=== PATIENT | female | born 1975 | race Caucasian/White ===

== ENCOUNTER → 2017-03-07 | Outpatient (CLI) | payer BC, OTHER ==
[~2017-03-07] MED LIST: BUPR150T3 PO; CIPR500T3 PO; CIPRODEX TOP; GASTROGRAFIN SOLUTION 30ML (Q9963) As Ordered ONE; PANT40TA2 PO; VITA50003 PO
== END ==
LOC: M RAD 16:39
PROVIDERS: ATTEND Physician Assistant Medical
DX: K62.89 Other specified diseases of anus and rectum (principal)
CPT/HCPCS: 72192; Q9963

== ENCOUNTER 2017-03-16 10:54 | Emergency (ER) | payer BC, OTHER ==
[~2017-03-16] VITALS: Ht 160 cm; Wt 79.4 kg
[2017-03-16] MEDS ORDERED: PANT40TA2 PO (11:17)
[2017-03-16] MEDS ORDERED: CIPRODEX TOP (11:17)
[2017-03-16] MEDS ORDERED: VITA1CAP40 PO (11:17)
[2017-03-16] MEDS ORDERED: BUPR150T3 PO (11:17)
[2017-03-16] MEDS ORDERED: CIPR500T3 PO (11:17)
--- NOTE | 2017-03-16 12:09 | REP ---
Clinical: Chest pain . Comparison: None. Technique: PA and lateral. Findings: The mediastinum and cardiac silhouette are normal. The lung hay are clear and without acute consolidation, effusion, or pneumothorax. The skeletal structures are intact and normal. Impression: 1. No acute cardiopulmonary process. Signed by Chung Aparicio MD 03/16/2017 12:00 P
[2017-03-16 12:27] LABS: ALBUMIN 3.7 GM/DL (3.2-5.2); ALBUMIN/GLOBULIN RATIO 0.97 (1.00-1.93); ALKALINE PHOSPHATASE 99 U/L (45-117); ALT/SGPT 18 U/L (12-78); ANION GAP 6 MEQ/L (8-16); AST/SGOT 15 U/L (15-37); BILIRUBIN,DIRECT < 0.1 MG/DL (0.0-0.2); BILIRUBIN,TOTAL 0.2 MG/DL (0.2-1.0); BLOOD UREA NITROGEN 11 MG/DL (7-18); CALCIUM LEVEL 8.8 MG/DL (8.5-10.1); CARBON DIOXIDE LEVEL 29 MEQ/L (21-32); CHLORIDE LEVEL 103 MEQ/L (98-107); CREATININE FOR GFR 0.88 MG/DL (0.55-1.02); GLOMERULAR FILTRATION RATE > 60.0 (>60); GLUCOSE, FASTING 77 MG/DL (70-105); POTASSIUM SERUM 3.6 MEQ/L (3.5-5.1); SODIUM LEVEL 138 MEQ/L (136-145); TOTAL PROTEIN 7.5 GM/DL (6.4-8.2)
[2017-03-16 12:36] LABS: BASO % 0.9 % (0.0-1.0); EOS % 0.8 % (0.0-3.0); LARGE UNSTAINED CELL # 0.1 K/mm3 (0.0-0.4); LARGE UNSTAINED CELL % 2.6 % (0.0-4.0); LYMPH # 1.4 K/mm3 (1.5-4.5); LYMPH % 27.9 % (24.0-44.0); MEAN CORPUSCULAR HEMOGLOBIN 27.4 pg (27.0-33.0); MEAN CORPUSCULAR VOLUME 85.8 fl (80.0-96.0); MONO # 0.4 K/mm3 (0.0-0.8); MONO % 6.9 % (0.0-5.0); NEUTROPHILS # 3.1 K/mm3 (1.8-7.7); NEUTROPHILS % 60.8 % (36.0-66.0); PLATELET COUNT, AUTOMATED 223 k/mm3 (150-450); RED CELL DISTRIBUTION WIDTH 13.7 % (11.5-14.5)
[2017-03-16 13:16] LABS: FREE T4 1.05 NG/DL (0.76-1.46)
[2017-03-16 13:17] VITALS: BP 135/80
--- NOTE | 2017-03-18 07:14 | ECGEPIP ---
Stationary ECG Study [facility] - ED Test Date: 2017-03-16 Pat Name: DAVID SINGH Department: Room: - Gender: F Offset Plate Maker: hermila : 1975 Requested By: Sana Polk Order Number: [id number] Reading MD: Sana Polk Measurements Intervals [place] Rate: 86 P: 32 VA: 153 QRS: 35 QRSD: 92 T: 28 QT: 367 QTc: 441 Interpretive Statements SINUS RHYTHM NONSPECIFIC T-WAVE ABNORMALITY INCREASED RATE 05/29/13 Electronically Signed On 03-18-2017 7:14:22 EDT by Sana Polk
== END 2017-03-16 13:31 | disposition home or self-care (01) ==
LOC: M ED 10:54
DX: R07.89 Other chest pain (principal); J06.9 Acute upper respiratory infection, unspecified; K21.9 Gastro-esophageal reflux disease without esophagitis; G43.909 Migraine, unspecified, not intractable, without status migrainosus; E66.9 Obesity, unspecified; E55.9 Vitamin D deficiency, unspecified; Z98.84 Bariatric surgery status; Z79.899 Other long term (current) drug therapy; Z79.2 Long term (current) use of antibiotics; Z88.6 Allergy status to analgesic agent

== ENCOUNTER → 2018-06-16 | Outpatient (CLI) | payer BC, OTHER | LOC: M EKG 15:54 | DX: R00.2 Palpitations (principal) | CPT/HCPCS: 93225 ==

== ENCOUNTER → 2019-08-30 | Outpatient (REF) | payer OTHER ==
[~2019-08-30] MED LIST changes: -GASTROGRAFIN SOLUTION 30ML (Q9963) As Ordered ONE; -PANT40TA2 PO; +PANT40TA3 PO; -VITA50003 PO; +VITA50005 PO
[2019-08-30 18:19] LABS: APPEARANCE, URINE CLEAR (CLEAR); BACTERIA, URINE AUTO NEGATIVE (NEGATIVE); BILIRUBIN, URINE AUTO NEGATIVE (NEGATIVE); BLOOD, URINE BLOOD NEGATIVE (NEGATIVE); COLOR, URINE STRAW (YELLOW); GLUCOSE, URINE (UA) AUTO NEGATIVE (NEGATIVE); KETONE, URINE AUTO NEGATIVE (NEGATIVE); LEUKOCYTE ESTERASE, URINE AUTO NEGATIVE (NEGATIVE); NITRITE, URINE AUTO NEGATIVE (NEGATIVE); PROTEIN, URINE AUTO NEGATIVE (NEGATIVE); RBC, URINE AUTO 1 /HPF (0-3); SPECIFIC GRAVITY URINE AUTO 1.014 (1.002-1.035); SQUAMOUS EPITHELIAL CELL UR AU 1 /HPF (0-6); UROBILINOGEN, URINE AUTO 0.2 mg/dL (0.0-2.0); WBC, URINE AUTO 1 /HPF (0-3)
== END ==
LOC: M SMT 17:02
PROVIDERS: ATTEND Nurse Practitioner Family
DX: R35.0 Frequency of micturition (principal)

== ENCOUNTER → 2021-11-25 | Outpatient (CLI) | payer BC, OTHER ==
[~2021-11-25] MED LIST changes: +BUPR150T12 PO; -BUPR150T3 PO; +CIPR7.5D5 TOP; -CIPRODEX TOP; +ISOVUE-370 76% 100ML VIAL As Ordered ONE; +PANT40TA29 PO; -PANT40TA3 PO
== END ==
LOC: M RAD 15:13
PROVIDERS: ATTEND Physician Assistant
DX: R47.02 Dysphasia (principal)

== ENCOUNTER → 2023-05-27 | Outpatient (CLI) | payer BC, OTHER ==
[~2023-05-27] MED LIST changes: -ISOVUE-370 76% 100ML VIAL As Ordered ONE
== END ==
LOC: M LAB 15:47
PROVIDERS: ATTEND Physician Assistant
DX: M77.12 Lateral epicondylitis, left elbow (principal)

== ENCOUNTER → 2023-08-24 | Outpatient (CLI) | payer BC, OTHER | LOC: M RAD 14:24 | PROVIDERS: ATTEND Physician Assistant | DX: R51.9 Headache, unspecified (principal); M54.2 Cervicalgia ==

== ENCOUNTER → 2023-11-14 | Outpatient (CLI) | payer BC, OTHER ==
[~2023-11-14] MED LIST changes: +BARIUM SULFATE 700 MG TABLET (E-Z-DISK) As Ordered ONE; +E-Z-PAQUE 96% w/w SUSP 176GM BTL As Ordered ONE; +VARIBAR NECTAR 40% w/v 240ML SUSP BTL As Ordered ONE; +VARIBAR PUDDING 40% w/v 230ML TUBE As Ordered ONE
== END ==
LOC: M RAD 11:00
PROVIDERS: ATTEND Otolaryngology
DX: F45.8 Other somatoform disorders (principal)

== ENCOUNTER → 2024-05-03 | Outpatient (CLI) | payer BC, OTHER ==
[~2024-05-03] MED LIST changes: -BARIUM SULFATE 700 MG TABLET (E-Z-DISK) As Ordered ONE; -E-Z-PAQUE 96% w/w SUSP 176GM BTL As Ordered ONE; -VARIBAR NECTAR 40% w/v 240ML SUSP BTL As Ordered ONE; -VARIBAR PUDDING 40% w/v 230ML TUBE As Ordered ONE
== END ==
LOC: M RAD 16:25
PROVIDERS: ATTEND Nurse Practitioner Adult Health
DX: M26.602 Left temporomandibular joint disorder, unspecified (principal)

== ENCOUNTER → 2024-06-05 | Outpatient (CLI) | payer BC | LOC: M RAD 15:22 | PROVIDERS: ATTEND Nurse Practitioner Adult Health | DX: H66.92 Otitis media, unspecified, left ear (principal); H92.02 Otalgia, left ear ==